=== PATIENT | male | born 1995 | race Caucasian/White ===

== ENCOUNTER 2018-06-30 15:57 | Inpatient (IN) | payer OTHER ==
[2018-06-30 18:28] VITALS: BMI 25.0
--- NOTE | 2018-06-30 19:14 | HP ---
COWS - Scale Resting Pulse: 0= [place] 80 or Below Sweatin=Flushed/Facial Moisture Restless Observation: 1= Difficult to Sit Still Pupil Size: 2= Moderately Dilated (Pupils = 4 mm) Bone or Joint Aches: 1= Mild Discomfort Runny Nose/ Eye Tearin= Nasal Congestion GI Upset > 30mins: 2= Nausea/Diarrhea (No diarrhea) Tremor Observation: 2= Slight Tremor Visible Yawning Observation: 1= 1-2x During Session Anxiety or Irritability: 1=Feels Anxious/Irritable Goose Flesh Skin: 0=Smooth Skin COWS Score: 13 CIWA Score - Admission Criteria OASAS Guidelines: Admission for Medically Managed Detox: Requires at least one of the followin. CIWA greater than 12 2. Seizures within the past 24 hours 3. Delirium tremens within the past 24 hours 4. Hallucinations within the past 24 hours 5. Acute intervention needed for co occurring medical disorder 6. Acute intervention needed for co occurring psychiatric disorder 7. Severe withdrawal that cannot be handled at a lower level of care (continued vomiting, continued diarrhea, abnormal vital signs) requiring intravenous medication and/or fluids 8. Admission ROS [facility] Chief Complaint: Here for heroin and methadone withdrawal. Allergies/Adverse Reactions: Allergies Allergy/AdvReac Type Severity Reaction Status Date / Time Fish Containing Products Allergy Severe Itching Verified 06/30/18 18:13 History of Present Illness: here for detox. has been taking methadone in the [facility] ED - last dosed on 06/27/18 w/ 60 mg methadone. Patient had no ID to be able to start a [facility]MTP and was told to go to ED by at [facility], who has been confirming dose during ED visits. was in [facility] for psych issues when was started on methadone 60 mg from 06/19 to 06/25. medicated in ER on 06/26 and 06/27. refused admission into the [facility] because has no ID. Heroin use began at age 21. sniff 20 bags/day. Methadone use began recently. started on Methadone in 05/19 Marijuana use began at age 16. Benzo use began at age 20. currently 1-2 mg 2-3x/week Nicotine use began at age 17. PMHx: Asthma, Hx. Depression and PTSD. Denies thoughts of harming self or others. On Seroquel. Encouraged to see a psychiatrist. Denies hx seizures or blackouts. States last overdose Mar 2018. States no Narcan kit at home. Discussed recommendation of getting a kit upon discharge. Search Terms: Abdirizak Villalobos, 1995 Search Date: 06/30/2018 07:03:54 PM The Drug Utilization Report below displays all of the controlled substance prescriptions, if any, that your patient has filled in the last twelve months. The information displayed on this report is compiled from pharmacy submissions to the Department, and accurately reflects the information as submitted by the pharmacies. This report was requested by: Yoon Hoff | Reference #: [id number] There are no results for the search terms that you entered. Exam Limitations: No Limitations - Ebola screening Have you traveled outside of the country in the last 21 days: No Have you had contact with anyone from an Ebola affected area: No Have you been sick,other than usual withdrawal symptoms: No (Denies recent expoasure to measles) Do you have a fever: No - Review of Systems Constitutional: Diaphoresis (Increased facial moisture), Changes in sleep ( Difficulty falling asleep) EENT: reports: Nose Congestion Respiratory: reports: No Symptoms reported Cardiac: reports: No Symptoms Reported GI: reports: Constipated (w/ occ streaks of blood.), Nausea : reports: No Symptoms Reported Musculoskeletal: reports: Back Pain (LBP from withdrawal. States achy. Pain is a "8".) Integumentary: reports: No Symptoms Reported Neuro: reports: No Symptoms reported Endocrine: reports: No Symptoms Reported Hematology: reports: No Symptoms Reported Psychiatric: reports: Judgement Intact, Orientated x3, Agitated, Anxious, Depressed (Denies thoughts of harming self or others.) Patient History - PPD History Previous Implant?: Yes Documented Results: Negative w/o proof Implanted On Prior [facility] Admission?: No PPD to be Administered?: Yes - Smoking Cessation Smoking history: Current every day smoker Have you smoked in the past 12 months: Yes Aproximately how many cigarettes per day: 10 Hx Chewing Tobacco Use: No Initiated information on smoking cessation: Yes 'Breaking Loose' booklet given: 06/30/18 - Substance & Tx. History Hx Alcohol Use: Yes ("Once in a blue") Hx Substance Use: Yes Substance Use Type: Heroin, Marijuana, Prescribed (Methadone ), Tranquilizers Hx Substance Use Treatment: Yes (detox) - Substances abused Heroin Substance route: Inhalation Frequency: Daily Amount used: 20 bags Age of first use: 21 Date of last use: 06/29/18 Admission Physical Exam [facility] - Vital Signs Vital Signs: Vital Signs - 24 hr 06/30/18 18:17 Temperature 98.8 F Pulse Rate 68 Respiratory 18 Rate Blood Pressure 117/68 - Physical General Appearance: Yes: Mild Distress, Tremorous, Sweating (Increased facial moisture), Anxious HEENTM: Yes: EOMI, Hearing grossly Normal, Normocephalic, TORSTEN (Pupils = 4 mm), Pharynx Normal Respiratory: Yes: Lungs Clear, Normal Breath Sounds, No Respiratory Distress Neck: Yes: No masses,lesions,Nodules, Supple Breast: Yes: Breast Exam Deferred Cardiology: Yes: Regular Rhythm, Regular Rate, S1, S2 Abdominal: Yes: Non Tender, Flat, Soft, Increased Bowel Sounds Genitourinary: Yes: Within Normal Limits Back: Yes: Normal Inspection Musculoskeletal: Yes: full range of Motion, Gait Steady Extremities: Yes: Normal Capillary Refill, Normal Range of Motion, Tremors Neurological: Yes: forms designer II-XII NML intact, Fully Oriented, Motor Strength 5/5 Integumentary: Yes: Normal Color, Warm Lymphatic: Yes: Within Normal Limits - Diagnostic (1) Opioid dependence with withdrawal Current Visit: Yes Status: Acute (2) Nicotine dependence, uncomplicated Current Visit: Yes Status: Acute Qualifiers: Nicotine product type: cigarettes Qualified Code(s): F17.210 - Nicotine dependence, cigarettes, uncomplicated (3) Sedative, hypnotic or anxiolytic use disorder, mild, abuse Current Visit: Yes Status: Acute (4) Marijuana dependence Current Visit: Yes Status: Acute (5) History of asthma Current Visit: Yes Status: Acute Cleared for Admission [facility] - Detox or Rehab [facility] Level of Care: Medically Managed Detox Regimen/Protocol: Methadone Claeared for Rehab Admission: No Breathalyzer - Breathalyzer Breathalyzer: 0 Urine Drug Screen - Test Device Lot number: [id number] Expiration date: 01/25/20 - Control Is test valid?: Yes - Results Drug screen NEGATIVE: No Urine drug screen results: THC-Marijuana, FEN-Fentanyl, MOP-Opiates, MTD- Methadone, BZO-Benzodiazepines Inpatient Rehab Admission - Rehab Decision to Admit Inpatient rehab admission?: No
[2018-06-30] MEDS ORDERED: METHADONE HCL 10 MG TABLET (FOR DETOX USE ONLY) PO ONE ×2 (19:43→23:00)
[2018-06-30] MEDS ORDERED: MENTHOL/PHENOL 1 EACH UD MM PRN (19:49)
[2018-06-30] MEDS ORDERED: NICOTINE POLACRILEX 2 MG GUM BUC PRN (19:49)
[2018-06-30] MEDS ORDERED: P-EPHED 60MG/TRIPROLIDI 2.5MG TABLET PO PRN (19:49)
[2018-06-30] MEDS ORDERED: guaiFENesin 200 MG/10 ML 10 ML UNIT-DOSE CUPS PO PRN (19:49)
[2018-06-30] MEDS ORDERED: MAGNESIUM CITRATE 300 ML BOTTLE PO PRN (19:49)
[2018-06-30] MEDS ORDERED: ACETAMINOPHEN 325 MG TABLET (FP) PO PRN ×2 (19:49)
[2018-06-30] MEDS ORDERED: BISMUTH SUBSALICYLATE 524 MG/30 ML UD PO PRN (19:49)
[2018-06-30] MEDS ORDERED: IBUPROFEN 400 MG TABLET (FP) PO PRN (19:49)
[2018-06-30] MEDS ORDERED: METHOCARBAMOL 500 MG TABLET PO PRN (19:49)
[2018-06-30] MEDS ORDERED: MAG HYDROX/AL HYDROX/SIMETH 30 ML UNIT-DOSE CUP PO PRN (19:49)
[2018-06-30] MEDS ORDERED: MAGNESIUM HYDROX 2400MG/30ML ORAL SUSPENSION 30 ML CUP PO PRN (19:49)
[2018-06-30] MEDS ORDERED: PROCHLORPERAZINE MALEATE 5 MG TABLET PO PRN (19:52)
[2018-06-30] MEDS: THIAMINE HCL 100 MG TABLET (FP) PO SCH (22:03)
[2018-07-01 02:54] LABS: URINE APPEARANCE CLEAR; URINE BILIRUBIN NEGATIVE (NEGATIVE); URINE COLOR YELLOW; URINE GLUCOSE (UA) NEGATIVE (NEGATIVE); URINE KETONE NEGATIVE (NEGATIVE); URINE LEUK ESTERASE NEGATIVE (NEGATIVE); URINE NITRITE NEGATIVE (NEGATIVE); URINE PROTEIN NEGATIVE (NEGATIVE); URINE UROBILINOGEN 0.2 mg/dL (0.2-1.0)
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
[2018-07-01] MEDS ORDERED: METHADONE HCL 10 MG TABLET (FOR DETOX USE ONLY) PO ONE (10:00)
[2018-07-01 10:23] LABS: HEMATOCRIT 37.2 % (35.4-49); HEMOGLOBIN 12.8 GM/dL (11.7-16.9); MCH 31.8 pg (25.7-33.7); MCHC 34.6 g/dl (32.0-35.9); MEAN CELL VOLUME 91.9 fl (80-96); MEAN PLT VOLUME 8.8 fl (7.5-11.1); PLATELET COUNT 328 K/MM3 (134-434); RBC 4.04 M/mm3 (4.00-5.60); RDW 12.2 % (11.9-15.9); WHITE BLOOD COUNT 7.5 K/mm3 (4.0-10.0)
[2018-07-01] MEDS: NICOTINE 14 MG/24 HOURS TOPICAL PATCH TD SCH (10:26)
[2018-07-01] MEDS: PRENATAL VITAMINS W/ FOLIC ACID TABLET (FP) PO SCH (10:26)
[2018-07-01] MEDS: clonazePAM 0.5 MG TABLET PO PRN ×3 (10:28→22:05)
[2018-07-01 10:32] LABS: ALBUMIN 3.7 g/dl (3.4-5.0); ALK PHOS 84 U/L (45-117); ANION GAP 8 MMOL/L (8-16); BILIRUBIN,TOTAL 0.5 mg/dL (0.2-1); BLOOD UREA NITROGEN 16 mg/dL (7-18); CHLORIDE 103 mmol/L (98-107); CO2 28 mmol/L (21-32); CREATININE 0.7 mg/dL (0.55-1.3); GLUCOSE,RANDOM 79 mg/dL (74-106); SGOT/AST 15 U/L (15-37); SGPT/ALT 34 U/L (13-61); SODIUM 138 mmol/L (136-145); TOT PROT 7.1 g/dl (6.4-8.2)
--- NOTE | 2018-07-01 10:42 | PN ---
BHS COWS - Scale Resting Pulse: 0= [place] 80 or Below Sweatin= Chills/Flushing Restless Observation: 0= Sits Still Pupil Size: 1= Pupils >than Normal Bone or Joint Aches: 1= Mild Discomfort Runny Nose/ Eye Tearin= None GI Upset > 30mins: 2= Nausea/Diarrhea (no diarrhea) Tremor Observation of Outstretched Hands: 0= None Yawning Observation: 1= 1-2x During Session Anxiety or Irritability: 1=Feels Anxious/Irritable Goose Flesh Skin: 3=Piloerection COWS Score: 10 BHS Progress Note (SOAP) Subjective: body aches mild tremor tired trouble sleep at night Objective: 07/01/18 10:41 Vital Signs Temperature 98.2 F 07/01/18 09:16 Pulse Rate 76 07/01/18 09:16 Respiratory Rate 18 07/01/18 09:16 Blood Pressure 116/76 07/01/18 09:16 O2 Sat by Pulse Oximetry (%) Laboratory Last Values Sodium 138 mmol/L (136-145) 07/01/18 07:00 Potassium 4.0 mmol/L (3.5-5.1) 07/01/18 07:00 Chloride 103 mmol/L (98-107) 07/01/18 07:00 Carbon Dioxide 28 mmol/L (21-32) 07/01/18 07:00 Anion Gap 8 MMOL/L (8-16) 07/01/18 07:00 BUN 16 mg/dL (7-18) 07/01/18 07:00 Creatinine 0.7 mg/dL (0.55-1.3) 07/01/18 07:00 Creat Clearance w eGFR 141.02 (>60) 07/01/18 07:00 Random Glucose 79 mg/dL (74-106) 07/01/18 07:00 Calcium 9.0 mg/dL (8.5-10.1) 07/01/18 07:00 Total Bilirubin 0.5 mg/dL (0.2-1) 07/01/18 07:00 AST 15 U/L (15-37) 07/01/18 07:00 ALT 34 U/L (13-61) 07/01/18 07:00 Alkaline Phosphatase 84 U/L (45-117) 07/01/18 07:00 Total Protein 7.1 g/dl (6.4-8.2) 07/01/18 07:00 Albumin 3.7 g/dl (3.4-5.0) 07/01/18 07:00 Urine Color Yellow 06/30/18 00:01 Urine Appearance Clear 06/30/18 00:01 Urine pH 6.0 (5.0-8.0) 06/30/18 00:01 Ur Specific [place] 1.022 (1.010-1.035) 06/30/18 00:01 Urine Protein Negative (NEGATIVE) 06/30/18 00:01 Urine Glucose (UA) Negative (NEGATIVE) 06/30/18 00:01 Urine Ketones Negative (NEGATIVE) 06/30/18 00:01 Urine Blood Negative (NEGATIVE) 06/30/18 00:01 Urine Nitrite Negative (NEGATIVE) 06/30/18 00:01 Urine Bilirubin Negative (NEGATIVE) 06/30/18 00:01 Urine Urobilinogen 0.2 mg/dL (0.2-1.0) 06/30/18 00:01 Ur Leukocyte Esterase Negative (NEGATIVE) 06/30/18 00:01 lab noted Assessment: 07/01/18 10:41 opiate withdrawal sx Plan: continue detox discuss medication assisted maintenance treatment program
--- NOTE | 2018-07-01 11:41 | EKG ---
Test Reason : Blood Pressure : / mmHG Vent. Rate : 066 BPM Atrial Rate : 066 BPM P-R Int : 146 ms QRS Dur : 100 ms QT Int : 430 ms P-R-T Axes : 016 029 026 degrees QTc Int : 450 ms NORMAL SINUS RHYTHM NORMAL ECG NO PREVIOUS ECGS AVAILABLE Confirmed by Elmer Chao MD ([id number]) on 07/01/2018 11:40:38 AM Referred By: Confirmed By:Elmer Chao MD
[2018-07-01] MEDS: QUEtiapine FUMARATE 100 MG TABLET (FP) PO SCH (22:04)
[2018-07-01] MEDS: THIAMINE HCL 100 MG TABLET (FP) PO SCH (22:04)
[2018-07-01] MEDS: cloNIDine HCL 0.1 MG TABLET PO PRN (22:06)
[2018-07-01] MEDS: MELATONIN 5 MG TABLETS PO PRN (22:06)
[2018-07-02] MEDS ORDERED: METHADONE HCL 10 MG TABLET (FOR DETOX USE ONLY) PO ONE (10:00)
[2018-07-02] MEDS: NICOTINE 14 MG/24 HOURS TOPICAL PATCH TD SCH (10:36)
[2018-07-02] MEDS: PRENATAL VITAMINS W/ FOLIC ACID TABLET (FP) PO SCH (10:36)
[2018-07-02] MEDS: clonazePAM 0.5 MG TABLET PO PRN ×2 (10:38→22:03)
--- NOTE | 2018-07-02 14:13 | PN ---
BHS COWS - Scale Resting Pulse: 1= [place] 81-100 Sweatin= Chills/Flushing Restless Observation: 0= Sits Still Pupil Size: 0= Normal to Room Light Bone or Joint Aches: 1= Mild Discomfort Runny Nose/ Eye Tearin= Nasal Congestion GI Upset > 30mins: 1= Stomach Cramp Tremor Observation of Outstretched Hands: 1= Tremor [place], Not Seen Yawning Observation: 1= 1-2x During Session Anxiety or Irritability: 1=Feels Anxious/Irritable Goose Flesh Skin: 0=Smooth Skin COWS Score: 8 BHS Progress Note (SOAP) Subjective: feeling ok today tolerate food and fluid well social with peers on hallway and day room Objective: 07/02/18 14:12 Vital Signs Temperature 98.9 F 07/02/18 13:50 Pulse Rate 93 H 07/02/18 13:50 Respiratory Rate 18 07/02/18 13:50 Blood Pressure 127/74 07/02/18 13:50 O2 Sat by Pulse Oximetry (%) Laboratory Last Values WBC 7.5 K/mm3 (4.0-10.0) 07/01/18 07:00 RBC 4.04 M/mm3 (4.00-5.60) 07/01/18 07:00 Hgb 12.8 GM/dL (11.7-16.9) 07/01/18 07:00 Hct 37.2 % (35.4-49) 07/01/18 07:00 MCV 91.9 fl (80-96) 07/01/18 07:00 MCH 31.8 pg (25.7-33.7) 07/01/18 07:00 MCHC 34.6 g/dl (32.0-35.9) 07/01/18 07:00 RDW 12.2 % (11.9-15.9) 07/01/18 07:00 Plt Count 328 K/MM3 (134-434) 07/01/18 07:00 MPV 8.8 fl (7.5-11.1) 07/01/18 07:00 Sodium 138 mmol/L (136-145) 07/01/18 07:00 Potassium 4.0 mmol/L (3.5-5.1) 07/01/18 07:00 Chloride 103 mmol/L (98-107) 07/01/18 07:00 Carbon Dioxide 28 mmol/L (21-32) 07/01/18 07:00 Anion Gap 8 MMOL/L (8-16) 07/01/18 07:00 BUN 16 mg/dL (7-18) 07/01/18 07:00 Creatinine 0.7 mg/dL (0.55-1.3) 07/01/18 07:00 Creat Clearance w eGFR 141.02 (>60) 07/01/18 07:00 Random Glucose 79 mg/dL (74-106) 07/01/18 07:00 Calcium 9.0 mg/dL (8.5-10.1) 07/01/18 07:00 Total Bilirubin 0.5 mg/dL (0.2-1) 07/01/18 07:00 AST 15 U/L (15-37) 07/01/18 07:00 ALT 34 U/L (13-61) 07/01/18 07:00 Alkaline Phosphatase 84 U/L (45-117) 07/01/18 07:00 Total Protein 7.1 g/dl (6.4-8.2) 07/01/18 07:00 Albumin 3.7 g/dl (3.4-5.0) 07/01/18 07:00 Urine Color Yellow 06/30/18 00:01 Urine Appearance Clear 06/30/18 00:01 Urine pH 6.0 (5.0-8.0) 06/30/18 00:01 Ur Specific [place] 1.022 (1.010-1.035) 06/30/18 00:01 Urine Protein Negative (NEGATIVE) 06/30/18 00:01 Urine Glucose (UA) Negative (NEGATIVE) 06/30/18 00:01 Urine Ketones Negative (NEGATIVE) 06/30/18 00:01 Urine Blood Negative (NEGATIVE) 06/30/18 00:01 Urine Nitrite Negative (NEGATIVE) 06/30/18 00:01 Urine Bilirubin Negative (NEGATIVE) 06/30/18 00:01 Urine Urobilinogen 0.2 mg/dL (0.2-1.0) 06/30/18 00:01 Ur Leukocyte Esterase Negative (NEGATIVE) 06/30/18 00:01 RPR Titer Nonreactive (NONREACTIVE) 07/01/18 07:00 lab noted Assessment: 07/02/18 14:12 withdrawal sx Plan: continue detox
[2018-07-02] MEDS: QUEtiapine FUMARATE 100 MG TABLET (FP) PO SCH (22:03)
[2018-07-02] MEDS: MELATONIN 5 MG TABLETS PO PRN (22:03)
[2018-07-02] MEDS: cloNIDine HCL 0.1 MG TABLET PO PRN (22:03)
[2018-07-02] MEDS: THIAMINE HCL 100 MG TABLET (FP) PO SCH (22:03)
[2018-07-03] MEDS ORDERED: METHADONE HCL 10 MG TABLET (FOR DETOX USE ONLY) PO ONE (10:00)
[2018-07-03] MEDS: NICOTINE 14 MG/24 HOURS TOPICAL PATCH TD SCH (10:37)
[2018-07-03] MEDS: PRENATAL VITAMINS W/ FOLIC ACID TABLET (FP) PO SCH (10:37)
[2018-07-03] MEDS: clonazePAM 0.5 MG TABLET PO PRN ×2 (11:30→22:03)
--- NOTE | 2018-07-03 14:03 | PN ---
BHS COWS - Scale Resting Pulse: 0= [place] 80 or Below Sweatin= Chills/Flushing Restless Observation: 0= Sits Still Pupil Size: 0= Normal to Room Light Bone or Joint Aches: 1= Mild Discomfort Runny Nose/ Eye Tearin= Nasal Congestion GI Upset > 30mins: 0= None Tremor Observation of Outstretched Hands: 0= None Yawning Observation: 0= None Anxiety or Irritability: 1=Feels Anxious/Irritable Goose Flesh Skin: 0=Smooth Skin COWS Score: 4 BHS Progress Note (SOAP) Subjective: feeling better today social with peers discuss aftercare Objective: 07/03/18 14:16 Vital Signs Temperature 99.0 F 07/03/18 13:43 Pulse Rate 97 H 07/03/18 13:43 Respiratory Rate 20 07/03/18 13:43 Blood Pressure 111/74 07/03/18 13:43 O2 Sat by Pulse Oximetry (%) Laboratory Last Values WBC 7.5 K/mm3 (4.0-10.0) 07/01/18 07:00 RBC 4.04 M/mm3 (4.00-5.60) 07/01/18 07:00 Hgb 12.8 GM/dL (11.7-16.9) 07/01/18 07:00 Hct 37.2 % (35.4-49) 07/01/18 07:00 MCV 91.9 fl (80-96) 07/01/18 07:00 MCH 31.8 pg (25.7-33.7) 07/01/18 07:00 MCHC 34.6 g/dl (32.0-35.9) 07/01/18 07:00 RDW 12.2 % (11.9-15.9) 07/01/18 07:00 Plt Count 328 K/MM3 (134-434) 07/01/18 07:00 MPV 8.8 fl (7.5-11.1) 07/01/18 07:00 Sodium 138 mmol/L (136-145) 07/01/18 07:00 Potassium 4.0 mmol/L (3.5-5.1) 07/01/18 07:00 Chloride 103 mmol/L (98-107) 07/01/18 07:00 Carbon Dioxide 28 mmol/L (21-32) 07/01/18 07:00 Anion Gap 8 MMOL/L (8-16) 07/01/18 07:00 BUN 16 mg/dL (7-18) 07/01/18 07:00 Creatinine 0.7 mg/dL (0.55-1.3) 07/01/18 07:00 Creat Clearance w eGFR 141.02 (>60) 07/01/18 07:00 Random Glucose 79 mg/dL (74-106) 07/01/18 07:00 Calcium 9.0 mg/dL (8.5-10.1) 07/01/18 07:00 Total Bilirubin 0.5 mg/dL (0.2-1) 07/01/18 07:00 AST 15 U/L (15-37) 07/01/18 07:00 ALT 34 U/L (13-61) 07/01/18 07:00 Alkaline Phosphatase 84 U/L (45-117) 07/01/18 07:00 Total Protein 7.1 g/dl (6.4-8.2) 07/01/18 07:00 Albumin 3.7 g/dl (3.4-5.0) 07/01/18 07:00 Urine Color Yellow 06/30/18 00:01 Urine Appearance Clear 06/30/18 00:01 Urine pH 6.0 (5.0-8.0) 06/30/18 00:01 Ur Specific [place] 1.022 (1.010-1.035) 06/30/18 00:01 Urine Protein Negative (NEGATIVE) 06/30/18 00:01 Urine Glucose (UA) Negative (NEGATIVE) 06/30/18 00:01 Urine Ketones Negative (NEGATIVE) 06/30/18 00:01 Urine Blood Negative (NEGATIVE) 06/30/18 00:01 Urine Nitrite Negative (NEGATIVE) 06/30/18 00:01 Urine Bilirubin Negative (NEGATIVE) 06/30/18 00:01 Urine Urobilinogen 0.2 mg/dL (0.2-1.0) 06/30/18 00:01 Ur Leukocyte Esterase Negative (NEGATIVE) 06/30/18 00:01 RPR Titer Nonreactive (NONREACTIVE) 07/01/18 07:00 lab noted Assessment: 07/03/18 14:16 withdrawal sx Plan: continue detox
[2018-07-03] MEDS: MELATONIN 5 MG TABLETS PO PRN (22:03)
[2018-07-03] MEDS: QUEtiapine FUMARATE 100 MG TABLET (FP) PO SCH (22:03)
[2018-07-03] MEDS: THIAMINE HCL 100 MG TABLET (FP) PO SCH (22:03)
[2018-07-04] MEDS ORDERED: METHADONE HCL 5 MG TABLET (FOR DETOX USE ONLY) PO ONE (06:00)
[2018-07-04 06:12] VITALS: BP 114/64; PULSE 62; TEMP 97.4
--- NOTE | 2018-07-04 18:16 | DS ---
[facility] Detox Discharge Summary Admission Date: 06/30/18 Discharge Date: 07/04/18 - History Present History: Cannabis Dependence, Opioid Dependence, Sedative Dependence Additional Comments: PATIENT GOING TO [facility] ([place] [place]) FOR AFTERCARE. PATIENT WAS DISCHARGED FROM DETOX UNIT IN STABLE MEDICAL CONDITION. Pertinent Past History: History Of Asthma, Depression, P.T.S.D., Nicotine Dependence. - Physical Exam Results Vital Signs: Vital Signs Temperature 97.4 F L 07/04/18 06:12 Pulse Rate 62 07/04/18 06:12 Respiratory Rate 18 07/04/18 06:12 Blood Pressure 114/64 07/04/18 06:12 O2 Sat by Pulse Oximetry (%) Pertinent Admission Physical Exam Findings: WITHDRAWAL SYMPTOMS. Laboratory Tests 06/30/18 07/01/18 07/01/18 00:01 07:00 07:00 WBC 7.5 RBC 4.04 Hgb 12.8 Hct 37.2 MCV 91.9 MCH 31.8 MCHC 34.6 RDW 12.2 Plt Count 328 MPV 8.8 Sodium 138 Potassium 4.0 Chloride 103 Carbon Dioxide 28 Anion Gap 8 BUN 16 Creatinine 0.7 Creat Clearance w eGFR 141.02 Random Glucose 79 Calcium 9.0 Total Bilirubin 0.5 AST 15 ALT 34 Alkaline Phosphatase 84 Total Protein 7.1 Albumin 3.7 Urine Color Yellow Urine Appearance Clear Urine pH 6.0 Ur Specific [place] 1.022 Urine Protein Negative Urine Glucose (UA) Negative Urine Ketones Negative Urine Blood Negative Urine Nitrite Negative Urine Bilirubin Negative Urine Urobilinogen 0.2 Ur Leukocyte Esterase Negative RPR Titer 07/01/18 07:00 WBC RBC Hgb Hct MCV MCH MCHC RDW Plt Count MPV Sodium Potassium Chloride Carbon Dioxide Anion Gap BUN Creatinine Creat Clearance w eGFR Random Glucose Calcium Total Bilirubin AST ALT Alkaline Phosphatase Total Protein Albumin Urine Color Urine Appearance Urine pH Ur Specific [place] Urine Protein Urine Glucose (UA) Urine Ketones Urine Blood Urine Nitrite Urine Bilirubin Urine Urobilinogen Ur Leukocyte Esterase RPR Titer Nonreactive LABS NOTED. - Treatment Hospital Course: Detox Protocol Followed, Detoxed Safely, Responded well, Discharged Condition Good Patient has Accepted a Rehab Referral to: PATIENT GOING TO [facility] ([place], [place]). - Medication Discharge Medications: Ambulatory Orders Quetiapine Fumarate [Seroquel] 100 mg PO HS 06/30/18 - Diagnosis (1) History of asthma Status: Acute (2) Marijuana dependence Status: Acute (3) Nicotine dependence, uncomplicated Status: Acute Qualifiers: Nicotine product type: cigarettes Qualified Code(s): F17.210 - Nicotine dependence, cigarettes, uncomplicated (4) Opioid dependence with withdrawal Status: Acute (5) Sedative, hypnotic or anxiolytic use disorder, mild, abuse Status: Acute (6) Substance induced mood disorder Status: Acute (7) Substance-induced sleep disorder Status: Acute - AMA Did Patient Leave Against Medical Advice: No
== END 2018-07-04 09:30 | disposition home or self-care (01) | DRG 773 ==
LOC: YASAS 15:57 → Y3N 18:05
PROVIDERS: ADMIT Surgery; ATTEND Surgery
PROC: HZ2ZZZZ Detoxification Services for Substance Abuse Treatment (ICD-10-PCS; principal; 2018-06-30)
DX: F11.23 Opioid dependence with withdrawal (principal); F13.230 Sedative, hypnotic or anxiolytic dependence with withdrawal, uncomplicated; F12.20 Cannabis dependence, uncomplicated; F17.210 Nicotine dependence, cigarettes, uncomplicated; F19.24 Other psychoactive substance dependence with psychoactive substance-induced mood disorder; F19.282 Other psychoactive substance dependence with psychoactive substance-induced sleep disorder; Z91.013 Allergy to seafood; Z59.0 Homelessness
CPT/HCPCS: 36415; 80053; 81003; 85027; 86593; 93005; 93010; J0735

== ENCOUNTER 2018-09-02 14:19 | Inpatient (IN) | payer OTHER ==
[2018-09-02 17:17] VITALS: BMI 26.6
--- NOTE | 2018-09-02 18:39 | HP ---
COWS - Scale Resting Pulse: 0= MD 80 or Below Sweatin=Flushed/Facial Moisture Restless Observation: 3= Extraneous Movement Pupil Size: 0= Normal to Room Light Bone or Joint Aches: 2= Severe Diffuse Aches Runny Nose/ Eye Tearin= Runny Nose/Eyes GI Upset > 30mins: 1= Stomach Cramp Tremor Observation: 0= None Yawning Observation: 2= >3x During Session Anxiety or Irritability: 1=Feels Anxious/Irritable Goose Flesh Skin: 3=Piloerection COWS Score: 16 CIWA Score Nausea/Vomitin Muscle Tremors: None Anxiety: 2 Agitation: 2 Paroxysmal Sweats: 2 Orientation: 0-Oriented Tacttile Disturbances: 0-None Auditory Disturbances: 0-None Visual Disturbances: 0-None Headache: 1-Very Mild CIWA-Ar Total Score: 9 - Admission Criteria OASAS Guidelines: Admission for Medically Managed Detox: Requires at least one of the followin. CIWA greater than 12 2. Seizures within the past 24 hours 3. Delirium tremens within the past 24 hours 4. Hallucinations within the past 24 hours 5. Acute intervention needed for co occurring medical disorder 6. Acute intervention needed for co occurring psychiatric disorder 7. Severe withdrawal that cannot be handled at a lower level of care (continued vomiting, continued diarrhea, abnormal vital signs) requiring intravenous medication and/or fluids 8. Admission [facility] Chief Complaint: 23 y/o M with PMH asthma, PTSD, depression, anxiety who presents for detox from methadone, heroin, alcohol and xanax. Allergies/Adverse Reactions: Allergies Allergy/AdvReac Type Severity Reaction Status Date / Time Fish Containing Products Allergy Severe Itching Verified 09/02/18 17:09 History of Present Illness: 23 y/o M with PMH asthma, PTSD, depression, anxiety, who presents for detox from methadone, heroin, alcohol and xanax. States that he last used street methadone yesterday 50mg. Has been using 50mg every day over the last 8 months. Longest sobriety 1 yr clean. Uses it so that he can use heroin less. Last heroin use was yesterday - used 2 bundles of heroin intranasally. Used to use via IVDA 2x in past, however has since d/c. Longest sobriety 1 yr. Last drink was also yesterday 1 pint of Aranza. Drinks at least 1 pint a day. States that when he withdraws he feels "as if he is dying." Longest sobriety 1 yr, was aided by past detox/rehab. Smokes marijuana occasionally 1 joint every few months. Xanax last use was 2 days ago ; 1 bar at a time. Tries to use it daily if he can. States it calms him down. Does not use in any particular pattern. Also used fentanyl yesterday - 3 bags intranasal. Has OD in past on fentanyl. Has a narcan kit at home. Was at [facility] in past for detox in June from methadone, heroin, alcohol and xanax. 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 smokes 1 ppd since age 17. alcohol use, methadone, heroin, xanax, fentanyl as above. denies other ingestions - Ebola screening Have you traveled outside of the country in the last 21 days: No Have you had contact with anyone from an Ebola affected area: No Do you have a fever: No - Review of Systems Constitutional: Chills, Unintentional Wgt. Loss EENT: reports: Blurred Vision, Mouth Swelling Respiratory: reports: Shortness of Breath Cardiac: reports: Other (+heartburn) GI: reports: Diarrhea, Abdominal cramping : reports: Dysuria Musculoskeletal: reports: Muscle Pain Integumentary: reports: No Symptoms Reported Neuro: reports: No Symptoms reported Endocrine: reports: No Symptoms Reported Hematology: reports: No Symptoms Reported Psychiatric: reports: No Sypmtoms Reported, Orientated x3 Patient History - Patient Medical History Hx Asthma: Yes (Pt is on MDI) Hx Chronic Obstructive Pulmonary Disease (COPD): No Hx Cardiac Disorders: No Hx Hypertension: No Hx Seizures: No Hx Diabetes: No Hx Gastrointestinal Disorders: No Hx Genitourinary Disorders: No Hx Sexually Transmitted Disorders: No Hx Renal Disease (ESRD): No Hx Depression: Yes Hx Suicide Attempt: No Hx Schizophrenia: No Other Medical History: PTSD, anxiety - Patient Surgical History Past Surgical History: No Hx Neurologic Surgery: No Hx Cataract Extraction: No Hx Cardiac Surgery: No Hx Lung Surgery: No Hx Breast Surgery: No Hx Breast Biopsy: No Hx Abdominal Surgery: No Hx Appendectomy: No Hx Cholecystectomy: No Hx Genitourinary Surgery: No Hx Orthopedic Surgery: No Anesthesia Reaction: No - PPD History Documented Results: Negative w/o proof Date: 07/02/18 PPD to be Administered?: No - Reproductive History Patient is a Female of Child Bearing Age (11 -55 yrs old): No - Smoking Cessation Smoking history: Current every day smoker Have you smoked in the past 12 months: Yes Aproximately how many cigarettes per day: 10 Hx Chewing Tobacco Use: No Initiated information on smoking cessation: Yes 'Breaking Loose' booklet given: 09/02/18 - Substance & Tx. History Hx Alcohol Use: Yes Substance Use Type: Alcohol, Heroin, Marijuana Hx Substance Use Treatment: Yes ([facility] detox 06/2018) - Substances abused Heroin Substance route: Inhalation Frequency: Daily Amount used: 20 bags Age of first use: 21 Date of last use: 09/01/18 Alcohol Substance route: Oral Frequency: Daily Amount used: 1 pint of henessy Age of first use: 23 Date of last use: 09/01/18 Non-Rx Methadone Substance route: Oral Frequency: Daily Amount used: 50 mg Age of first use: 23 Date of last use: 09/01/18 Alprazolam (Xanax) Substance route: Oral Frequency: Daily Amount used: 1 mg Age of first use: 19 Date of last use: 08/31/18 Family Disease History - Family Disease History Family History: Denies Admission Physical Exam BHS - Vital Signs Vital Signs: Vital Signs - 24 hr 09/02/18 17:09 Temperature 97.7 F Pulse Rate 60 Respiratory 16 Rate Blood Pressure 104/64 - Physical General Appearance: Yes: Within Normal Limits HEENTM: Yes: Within Normal Limits Respiratory: Yes: Lungs Clear Neck: Yes: Supple Breast: Yes: Breast Exam Deferred Cardiology: Yes: Within Normal Limits, Regular Rate, S1, S2 Abdominal: Yes: Flat, Soft Genitourinary: Yes: Within Normal Limits Back: Yes: Within Normal Limits Musculoskeletal: Yes: Within Normal Limits Extremities: Yes: Within Normal Limits Neurological: Yes: Within Normal Limits, 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 Integumentary: Yes: Within Normal Limits Lymphatic: Yes: Within Normal Limits - Diagnostic (1) History of asthma Current Visit: No Status: Acute (2) Marijuana dependence Current Visit: No Status: Acute (3) Nicotine dependence, uncomplicated Current Visit: No Status: Acute Qualifiers: Nicotine product type: cigarettes Qualified Code(s): F17.210 - Nicotine dependence, cigarettes, uncomplicated (4) Opioid dependence with withdrawal Current Visit: No Status: Acute (5) Sedative, hypnotic or anxiolytic use disorder, mild, abuse Current Visit: No Status: Acute Cleared for Admission S - Detox or Rehab [facility] Level of Care: Medically Supervised Detox Regimen/Protocol: Methadone/Librium Breathalyzer - Breathalyzer Breathalyzer: 0 Urine Drug Screen - Test Device Lot number: [id number] Expiration date: 06/24/20 - Control Is test valid?: Yes - Results Drug screen NEGATIVE: No Urine drug screen results: THC-Marijuana, FEN-Fentanyl, MOP-Opiates, BZO- Benzodiazepines Inpatient Rehab Admission - Rehab Decision to Admit Inpatient rehab admission?: No
[2018-09-02] MEDS ORDERED: METHADONE HCL 10 MG TABLET (FOR DETOX USE ONLY) PO ONE (19:06)
[2018-09-02] MEDS ORDERED: cloNIDine HCL 0.1 MG TABLET PO PRN (19:06)
[2018-09-02] MEDS ORDERED: chlordiazePOXIDE HCL 25 MG CAPSULE PO PRN (19:07)
[2018-09-02] MEDS ORDERED: MAGNESIUM HYDROX 2400MG/30ML ORAL SUSPENSION 30 ML CUP PO PRN (19:08)
[2018-09-02] MEDS ORDERED: ACETAMINOPHEN 325 MG TABLET (FP) PO PRN (19:08)
[2018-09-02] MEDS ORDERED: MAG HYDROX/AL HYDROX/SIMETH 30 ML UNIT-DOSE CUP PO PRN (19:08)
[2018-09-02] MEDS ORDERED: IBUPROFEN 400 MG TABLET (FP) PO PRN (19:08)
[2018-09-02] MEDS ORDERED: MENTHOL/PHENOL 1 EACH UD MM PRN (19:08)
[2018-09-02] MEDS ORDERED: BISMUTH SUBSALICYLATE 524 MG/30 ML UD PO PRN (19:08)
[2018-09-02] MEDS ORDERED: NICOTINE POLACRILEX 2 MG GUM BUC PRN (19:08)
[2018-09-02] MEDS ORDERED: hydrOXYzine PAMOATE 25 MG CAPSULE (FP) PO PRN (19:08)
--- NOTE | 2018-09-02 21:45 | PN ---
Teaching Attending Note Name of Resident: Neda Mckinley ATTENDING PHYSICIAN STATEMENT I saw and evaluated the patient. I reviewed the resident's note and discussed the case with the resident. I agree with the resident's findings and plan as documented. SUBJECTIVE: 23 y/o M with PMH asthma, PTSD, depression, anxiety, who presents for detox from methadone, heroin, alcohol and xanax. OBJECTIVE: Vital Signs - 24 hr 09/02/18 09/02/18 17:09 21:35 Temperature 97.7 F 98.1 F Pulse Rate 60 67 Respiratory 16 18 Rate Blood Pressure 104/64 108/70 alert and oriented tremulous ASSESSMENT AND PLAN: pt to be admitted for alcohol and heroin detox, senior care treatment with [facility] heroin/suboxone discussed with patient
[2018-09-02] MEDS: chlordiazePOXIDE HCL 25 MG CAPSULE PO SCH (22:17)
[2018-09-02] MEDS: THIAMINE HCL 100 MG TABLET (FP) PO SCH (22:18)
[2018-09-02] MEDS: MELATONIN 5 MG TABLETS PO PRN (22:19)
[2018-09-03] MEDS: chlordiazePOXIDE HCL 25 MG CAPSULE PO SCH ×4 (06:00→23:16)
--- NOTE | 2018-09-03 08:33 | EKG ---
Test Reason : Blood Pressure : / mmHG Vent. Rate : 060 BPM Atrial Rate : 060 BPM P-R Int : 150 ms QRS Dur : 102 ms QT Int : 452 ms P-R-T Axes : 016 033 036 degrees QTc Int : 452 ms NORMAL SINUS RHYTHM WITH SINUS ARRHYTHMIA NORMAL ECG WHEN COMPARED WITH ECG OF 30-JUN-2018 19:01, NO SIGNIFICANT CHANGE WAS FOUND Confirmed by CHANDU CHUA, TAMARA ([id number]) on 09/03/2018 8:33:34 AM Referred By: Confirmed By:TAMARA SCHOFIELD MD
--- NOTE | 2018-09-03 08:56 | CONSULT ---
[facility] Psychiatric Consult - Data Date of interview: 09/03/18 Admission source: Self-referred Identifying data: Mr Villalobos is a 23 years old single male, unemployed with no source of income, homeless seeking detox treatment for alcohol, opioid and benzodiazepine Substance Abuse History: Reports history of alcohol, heroin, non rx methadone and xanax use. Refer to adiction counselor's summary for further information Medical History: Significant for bronchial asthma. Smokes 10 cigarettes daily Psychiatric History: Reports that his first psychiatric contact was at age 16 when he was diagnosed with PTSD(witness killing of 2 cousins) by an outpatient psychiatrist in [place] and prescribed Seroquel. Reports that he has been taking medication on & off since. Reports MDD was added to his diagnoses at age 21. Denies current outpatient psychiatric treatment but get Seroquel 200 mg/hs prescribed by his primary care physician. 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 Reports one previous psychiatric admission to [facility] in May 2018 for alleged suicidal ideations. Told magnetic tape typewriter operator that he was under the influence of drug at the time. Denies previous suicidal attempt. At present, reports feeling depressed and anxious and sleeping poorly. Physical/Sexual Abuse/Trauma History: Denies emotional, physical or sexual abuse as well as DV relationship Additional Comment: Denies criminal history Mental Status Exam - Mental Status Exam Alert and Oriented to: Time, Place, Person Cognitive Function: Fair Patient Appearance: Well Groomed Mood: Depressed, Anxious Affect: Appropriate Patient Behavior: Cooperative Speech Pattern: Clear Voice Loudness: Normal Thought Process: Intact, Goal Oriented Thought Disorder: Not Present Hallucinations: Denies Suicidal Ideation: Denies Homicidal Ideation: Denies Insight/Judgement: Poor Sleep: Poorly Appetite: Good Muscle strength/Tone: Normal Gait/Station: Normal Psychiatric Findings - Problem List ([place] 1, 2,3) (1) PTSD (post-traumatic stress disorder) Current Visit: Yes Status: Chronic (2) MDD (major depressive disorder) Current Visit: Yes Status: Chronic (3) Substance induced mood disorder Current Visit: Yes Status: Acute (4) Substance-induced sleep disorder Current Visit: Yes Status: Acute (5) Alcohol dependence, uncomplicated Current Visit: Yes Status: Acute (6) Opioid dependence with withdrawal Current Visit: No Status: Acute (7) Sedative, hypnotic or anxiolytic use disorder, mild, abuse Current Visit: No Status: Acute (8) Nicotine dependence, uncomplicated Current Visit: No Status: Chronic Qualifiers: Nicotine product type: cigarettes Qualified Code(s): F17.210 - Nicotine dependence, cigarettes, uncomplicated (9) History of asthma Current Visit: No Status: Chronic - Initial Treatment Plan Initial Treatment Plan: 1) Continue Seroquel 200 mg po HS. 2) Continue inpatient detoxification
[2018-09-03] MEDS ORDERED: METHADONE HCL 10 MG TABLET (FOR DETOX USE ONLY) ONE (09:19)
[2018-09-03] MEDS ORDERED: METHADONE HCL 5 MG TABLET (FOR DETOX USE ONLY) ONE (09:19)
[2018-09-03] MEDS ORDERED: METHADONE (DETOX) 20 MG, METHADONE (DETOX) 5 MG PO ONE (10:00)
[2018-09-03 10:04] LABS: HEMATOCRIT 36.6 % (35.4-49); HEMOGLOBIN 12.8 GM/dL (11.7-16.9); MCH 31.7 pg (25.7-33.7); MEAN CELL VOLUME 90.5 fl (80-96); MEAN PLT VOLUME 8.9 fl (7.5-11.1); PLATELET COUNT 307 K/MM3 (134-434); RBC 4.05 M/mm3 (4.00-5.60); RDW 12.3 % (11.9-15.9); WHITE BLOOD COUNT 5.7 K/mm3 (4.0-10.0)
[2018-09-03 10:17] LABS: ALBUMIN 3.4 g/dl (3.4-5.0); BILIRUBIN,TOTAL 0.7 mg/dL (0.2-1); BLOOD UREA NITROGEN 9.6 mg/dL (7-18); CALCIUM 8.9 mg/dL (8.5-10.1); CREATININE 0.7 mg/dL (0.55-1.3); POTASSIUM 4.1 mmol/L (3.5-5.1); TOT PROT 6.6 g/dl (6.4-8.2)
[2018-09-03] MEDS: PRENATAL VITAMINS W/ FOLIC ACID TABLET (FP) PO SCH (10:57)
--- NOTE | 2018-09-03 11:20 | PN ---
[facility] CIWA - CIWA Score Nausea/Vomitin-No Nausea/No Vomiting Muscle Tremors: 3 Anxiety: 3 Agitation: 4-Moderately Restless Paroxysmal Sweats: 3 Orientation: 0-Oriented Tacttile Disturbances: 0-None Auditory Disturbances: 0-None Visual Disturbances: 0-None Headache: 0-None Present CIWA-Ar Total Score: 13 [facility] COWS - Scale Resting Pulse: 0= IA 80 or Below Sweatin=Flushed/Facial Moisture Restless Observation: 1= Difficult to Sit Still Pupil Size: 0= Normal to Room Light Bone or Joint Aches: 1= Mild Discomfort Runny Nose/ Eye Tearin= Runny Nose/Eyes GI Upset > 30mins: 1= Stomach Cramp Tremor Observation of Outstretched Hands: 2= Slight Tremor Visible Yawning Observation: 2= >3x During Session Anxiety or Irritability: 2=Irritable/Anxious Goose Flesh Skin: 0=Smooth Skin COWS Score: 13 S Progress Note (SOAP) Subjective: sweats shakes interrupted sleep body aches anxiety chills Objective: 09/03/18 11:19 Vital Signs Temperature 97.3 F L 09/03/18 09:29 Pulse Rate 65 09/03/18 09:29 Respiratory Rate 18 09/03/18 09:29 Blood Pressure 110/58 L 09/03/18 09:29 O2 Sat by Pulse Oximetry (%) Laboratory Tests 09/03/18 09/03/18 07:50 07:50 WBC 5.7 RBC 4.05 Hgb 12.8 Hct 36.6 MCV 90.5 MCH 31.7 MCHC 35.0 RDW 12.3 Plt Count 307 MPV 8.9 Sodium 140 Potassium 4.1 Chloride 105 Carbon Dioxide 29 Anion Gap 7 L BUN 9.6 Creatinine 0.7 Est GFR (CKD-EPI)AfAm 155.25 Est GFR (CKD-EPI)NonAf 133.96 Random Glucose 84 Calcium 8.9 Total Bilirubin 0.7 AST 68 H ALT 100 H Alkaline Phosphatase 94 Total Protein 6.6 Albumin 3.4 labs noted aaox3 ambulating no acute distress Assessment: 09/03/18 11:20 withdrawals noted Plan: continue detox increase fluids
[2018-09-03] MEDS ORDERED: QUEtiapine FUMARATE 200 MG TABLET PO SCH (22:00)
[2018-09-03] MEDS: THIAMINE HCL 100 MG TABLET (FP) PO SCH (22:25)
[2018-09-03] MEDS: MELATONIN 5 MG TABLETS PO PRN (22:26)
[2018-09-04] MEDS: chlordiazePOXIDE HCL 25 MG CAPSULE PO SCH ×2 (06:34→11:00)
[2018-09-04] MEDS ORDERED: METHADONE HCL 10 MG TABLET (FOR DETOX USE ONLY) PO ONE (10:00)
[2018-09-04] MEDS: PRENATAL VITAMINS W/ FOLIC ACID TABLET (FP) PO SCH (11:00)
--- NOTE | 2018-09-04 11:40 | PN ---
[facility] CIWA - CIWA Score Nausea/Vomitin-No Nausea/No Vomiting Muscle Tremors: 3 Anxiety: 2 Agitation: 2 Paroxysmal Sweats: 2 Orientation: 0-Oriented Tacttile Disturbances: 0-None Auditory Disturbances: 0-None Visual Disturbances: 0-None Headache: 0-None Present CIWA-Ar Total Score: 9 BHS COWS - Scale Resting Pulse: 0= DC 80 or Below Sweatin= Chills/Flushing Restless Observation: 1= Difficult to Sit Still Pupil Size: 0= Normal to Room Light Bone or Joint Aches: 1= Mild Discomfort Runny Nose/ Eye Tearin= Nasal Congestion GI Upset > 30mins: 0= None Tremor Observation of Outstretched Hands: 1= Tremor [place], Not Seen Yawning Observation: 1= 1-2x During Session Anxiety or Irritability: 1=Feels Anxious/Irritable Goose Flesh Skin: 0=Smooth Skin COWS Score: 7 [facility] Progress Note (SOAP) Subjective: interrupted sleep body aches sweats irritable Objective: 09/04/18 11:39 Vital Signs Temperature 97.5 F L 09/04/18 09:44 Pulse Rate 66 09/04/18 09:44 Respiratory Rate 16 09/04/18 09:44 Blood Pressure 111/51 L 09/04/18 09:44 O2 Sat by Pulse Oximetry (%) Laboratory Tests 09/03/18 09/03/18 09/03/18 07:50 07:50 07:50 WBC 5.7 RBC 4.05 Hgb 12.8 Hct 36.6 MCV 90.5 MCH 31.7 MCHC 35.0 RDW 12.3 Plt Count 307 MPV 8.9 Sodium 140 Potassium 4.1 Chloride 105 Carbon Dioxide 29 Anion Gap 7 L BUN 9.6 Creatinine 0.7 Est GFR (CKD-EPI)AfAm 155.25 Est GFR (CKD-EPI)NonAf 133.96 Random Glucose 84 Calcium 8.9 Total Bilirubin 0.7 AST 68 H ALT 100 H Alkaline Phosphatase 94 Total Protein 6.6 Albumin 3.4 RPR Titer Nonreactive labs noted aaox3 ambulating no acute distress Assessment: 09/04/18 11:40 mild withdrawal sx Plan: continue detox increase fluids
[2018-09-04 13:48] VITALS: BP 116/53; PULSE 86; TEMP 98.4
--- NOTE | 2018-09-04 14:43 | PN ---
[facility] Progress Note Note: pt was admitted in withdrawal sx and pt states he did not want to continue with detox. In spite of extensive motivational counseling regarding the risk of relapse, seizures, DT's and or loss, pt chose to sign out AMA.
--- NOTE | 2018-09-04 14:48 | DS ---
[facility] Detox Discharge Summary Admission Date: 09/02/18 - History Present History: Alcohol Dependence, Cannabis Dependence, Opioid Dependence, Sedative Dependence - Physical Exam Results Vital Signs: Vital Signs Temperature 98.4 F 09/04/18 13:48 Pulse Rate 86 09/04/18 13:48 Respiratory Rate 16 09/04/18 13:48 Blood Pressure 116/53 L 09/04/18 13:48 O2 Sat by Pulse Oximetry (%) Pertinent Admission Physical Exam Findings: arrived in withdrawals pt is now aaox3 ambulating Vital Signs Temperature 98.4 F 09/04/18 13:48 Pulse Rate 86 09/04/18 13:48 Respiratory Rate 16 09/04/18 13:48 Blood Pressure 116/53 L 09/04/18 13:48 O2 Sat by Pulse Oximetry (%) Laboratory Tests 09/03/18 09/03/18 09/03/18 07:50 07:50 07:50 WBC 5.7 RBC 4.05 Hgb 12.8 Hct 36.6 MCV 90.5 MCH 31.7 MCHC 35.0 RDW 12.3 Plt Count 307 MPV 8.9 Sodium 140 Potassium 4.1 Chloride 105 Carbon Dioxide 29 Anion Gap 7 L BUN 9.6 Creatinine 0.7 Est GFR (CKD-EPI)AfAm 155.25 Est GFR (CKD-EPI)NonAf 133.96 Random Glucose 84 Calcium 8.9 Total Bilirubin 0.7 AST 68 H ALT 100 H Alkaline Phosphatase 94 Total Protein 6.6 Albumin 3.4 RPR Titer Nonreactive - Treatment Hospital Course: Discharged Condition Good Patient has Accepted a Rehab Referral to: pt declined rehab; referral provided - Medication Discharge Medications: Ambulatory Orders Quetiapine Fumarate [Seroquel] 200 mg PO HS 06/30/18 - Diagnosis (1) Alcohol dependence, uncomplicated Current Visit: Yes Status: Chronic (2) Substance induced mood disorder Current Visit: Yes Status: Acute (3) Substance-induced sleep disorder Current Visit: Yes Status: Acute (4) MDD (major depressive disorder) Current Visit: Yes Status: Chronic (5) PTSD (post-traumatic stress disorder) Current Visit: Yes Status: Chronic (6) Marijuana dependence Current Visit: Yes Status: Chronic (7) Opioid dependence with withdrawal Current Visit: No Status: Acute (8) Sedative, hypnotic or anxiolytic use disorder, mild, abuse Current Visit: Yes Status: Chronic (9) Substance induced mood disorder Current Visit: No Status: Acute (10) Substance-induced sleep disorder Current Visit: No Status: Acute (11) History of asthma Current Visit: No Status: Chronic (12) Nicotine dependence, uncomplicated Current Visit: Yes Status: Chronic Qualifiers: Nicotine product type: cigarettes Qualified Code(s): F17.210 - Nicotine dependence, cigarettes, uncomplicated - AMA Did Patient Leave Against Medical Advice: Yes (going home; declined rehab.)
[2018-09-05] MEDS ORDERED: chlordiazePOXIDE HCL 10 MG CAPSULE PO PRN
[2018-09-05] MEDS ORDERED: chlordiazePOXIDE HCL 10 MG CAPSULE PO SCH (05:00)
[2018-09-05] MEDS ORDERED: METHADONE (DETOX) 10 MG, METHADONE (DETOX) 5 MG PO ONE (10:00)
[2018-09-06] MEDS ORDERED: chlordiazePOXIDE HCL 10 MG CAPSULE PO SCH (05:00)
[2018-09-06] MEDS ORDERED: METHADONE HCL 10 MG TABLET (FOR DETOX USE ONLY) PO ONE (10:00)
[2018-09-07] MEDS ORDERED: chlordiazePOXIDE HCL 10 MG CAPSULE PO ONE (05:00)
[2018-09-07] MEDS ORDERED: METHADONE HCL 5 MG TABLET (FOR DETOX USE ONLY) PO ONE (06:00)
== END 2018-09-04 15:02 | disposition home or self-care (01) | DRG 773 ==
LOC: YASAS 14:19 → Y6N 19:08
PROVIDERS: ADMIT Surgery; ATTEND Surgery
PROC: HZ2ZZZZ Detoxification Services for Substance Abuse Treatment (ICD-10-PCS; principal; 2018-09-02)
DX: F10.230 Alcohol dependence with withdrawal, uncomplicated (principal); F11.23 Opioid dependence with withdrawal; F13.230 Sedative, hypnotic or anxiolytic dependence with withdrawal, uncomplicated; F12.20 Cannabis dependence, uncomplicated; F17.210 Nicotine dependence, cigarettes, uncomplicated; F19.282 Other psychoactive substance dependence with psychoactive substance-induced sleep disorder; F19.24 Other psychoactive substance dependence with psychoactive substance-induced mood disorder; F33.9 Major depressive disorder, recurrent, unspecified; F43.10 Post-traumatic stress disorder, unspecified; F41.8 Other specified anxiety disorders; J45.909 Unspecified asthma, uncomplicated; Z59.0 Homelessness
CPT/HCPCS: 36415; 80053; 85027; 86593; 93005; 93010